=== PATIENT | female | born 1950 | race Caucasian/White ===

== ENCOUNTER 2016-04-16 11:28 | Emergency (ER) | payer MEDICARE, OTHER ==
[~2016-04-16] VITALS: Ht 162.6 cm; Wt 57.6 kg
[2016-04-16 11:38] VITALS: BP 135/76; PULSE 68; RESP 16; TEMP 97.7; O2SAT 98
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
[2016-04-16] MEDS ORDERED: ATOR10TA15 PO (11:57)
[2016-04-16] MEDS ORDERED: LEVO.1 PO (11:57)
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
== END 2016-04-16 14:16 | disposition home or self-care (01) ==
LOC: PHEFT 11:28
DX: S09.11XA Strain of muscle and tendon of head, initial encounter (principal); S16.1XXA Strain of muscle, fascia and tendon at neck level, initial encounter; S39.012A Strain of muscle, fascia and tendon of lower back, initial encounter; R53.83 Other fatigue; E03.9 Hypothyroidism, unspecified; E78.5 Hyperlipidemia, unspecified; W17.89XA Other fall from one level to another, initial encounter
CPT/HCPCS: 70450; 72040; 99284; L0150